=== PATIENT | female | born 1990 | race Caucasian/White ===

== ENCOUNTER 2017-01-25 23:55 | Emergency (ER) | payer OTHER ==
[~2017-01-25] VITALS: Ht 154.9 cm; Wt 58.1 kg
[~2017-01-25 23:55] MED LIST: ALBU0.0939 IH; PRED10TA5 PO; PREN-385 PO; PRON INH
[2017-01-26 00:03] VITALS: BP 117/72
[2017-01-26] MEDS: BACITRACIN OINT 500 UNITS/GM PKT TP ONE (00:35)
[2017-01-26 01:03] VITALS: BP 122/76
== END 2017-01-26 01:03 | disposition home or self-care (01) ==
LOC: MED 23:55
DX: S01.01XA Laceration without foreign body of scalp, initial encounter (principal); J45.909 Unspecified asthma, uncomplicated; Y04.2XXA Assault by strike against or bumped into by another person, initial encounter; Y93.84 Activity, sleeping; Y92.092 Bedroom in other non-institutional residence as the place of occurrence of the external cause; Y99.8 Other external cause status
CPT/HCPCS: 12001; 90471; 90715; 99283

== ENCOUNTER 2020-03-22 22:01 | Emergency (ER) | payer OTHER ==
[~2020-03-22] VITALS: Ht 154.9 cm; Wt 64.9 kg
[2020-03-22 22:05] VITALS: BP 116/74
[2020-03-22] MEDS ORDERED: methylPREDNISolone SS 125 MG in WATER STERILE 2 ML IM ONE (22:35)
[2020-03-22] MEDS ORDERED: methylPREDNISolone SS 125 MG/2 ML VIAL ONE (22:41)
[2020-03-22] MEDS ORDERED: WATER STERILE 10 ML MC ONE (22:41)
[2020-03-22 22:58] VITALS: BP 120/64
== END 2020-03-22 22:58 | disposition home or self-care (01) ==
LOC: MED 22:01
DX: L50.0 Allergic urticaria (principal); J45.909 Unspecified asthma, uncomplicated; Z79.899 Other long term (current) drug therapy
CPT/HCPCS: 96372; 99283; J2930; Q0163

== ENCOUNTER 2022-01-05 19:22 | Emergency (ER) | payer OTHER ==
[~2022-01-05] VITALS: Ht 154.9 cm; Wt 71.7 kg
[2022-01-05 19:43] VITALS: BP 124/77
--- NOTE | 2022-01-05 19:52 | NUR ---
SWABS COLLECTED AND GIVEN TO PRITI FROM LAB. PT TO GIOVANNI.
--- NOTE | 2022-01-05 20:59 | NUR ---
PT TAKEN TO BED 7.
--- NOTE | 2022-01-05 21:16 | NUR ---
DR. ZAMORA AT BEDSIDE FOR EVALUATION
[2022-01-05] MEDS ORDERED: ONDANSETRON 4 MG ODT PO ONE (21:25)
[2022-01-05] MEDS ORDERED: DICYCLOMINE 20 MG/2 ML VIAL IM ONE (21:25)
[2022-01-05 21:37] LABS: BASOPHILS % (AUTO) 0.6 % (0.0-2.0); EOSINOPHILS # (AUTO) 0.3 K/uL (0-0.4); EOSINOPHILS % (AUTO) 3.7 % (0.0-4.0); HEMATOCRIT 38.9 % (36-48); HEMOGLOBIN 12.8 g/dL (12.0-16.0); LYMPHOCYTES # (AUTO) 2.3 K/uL (2.5-16.5); LYMPHOCYTES % (AUTO) 31.7 % (20.5-51.1); MEAN CORPUSCULAR HEMOGLOBIN 30 pg (27-31); MEAN CORPUSCULAR HGB CONC 33 g/dL (33-37); MEAN CORPUSCULAR VOLUME 91.1 fL (80-94); MONOCYTES # (AUTO) 0.5 K/uL (0.8-1.0); MONOCYTES % (AUTO) 6.7 % (1.7-9.3); NEUTROPHILS # (AUTO) 4.2 K/uL (1.8-7.7); NEUTROPHILS % (AUTO) 57.3 % (42.2-75.2); PLATELET COUNT (AUTO) 294 K/uL (140-450); RED BLOOD CELL COUNT(AUTO) 4.27 MIL/uL (4.20-5.40); RED CELL DISTRIBUTION WIDTH 14.1 % (11.6-13.7); WHITE BLOOD COUNT (AUTO) 7.4 K/uL (4.8-10.8)
[2022-01-05 21:53] LABS: ANION GAP 10.6 (8-16); CARBON DIOXIDE 26.2 mmol/L (21-32); CREATININE 0.7 mg/dL (0.6-1.3); POTASSIUM 3.8 mmol/L (3.5-5.1); TOTAL BILIRUBIN 0.3 mg/dL (0.0-1.0)
--- NOTE | 2022-01-05 22:03 | NUR ---
PT STATES DIARHEA X 3 DAYS , DENIES RECENT TRAVEL . DENIES N/V/D; SKIN IS PINK/WARM/DRY; AAOX4 WITH EVEN AND STEADY GAIT; LUNGS CLEAR BL; HR EVEN AND REGULAR; PT DENIES ANY FEVER, CP, SOB, OR COUGH AT THIS TIME; PATIENT STATES PAIN OF 0/10 AT THIS TIME; VSS; PATIENT POSITIONED FOR COMFORT; HOB ELEVATED; BEDRAILS UP X2; BED DOWN. ER MD MADE AWARE OF PT STATUS.
--- NOTE | 2022-01-05 22:03 | NUR ---
PROVIDED PT CUP FOR URINE
--- NOTE | 2022-01-05 22:26 | NUR ---
PT STATES DIARRHEA X 3 DAYS. PT DENIES TRAVEL. NO BLOOD IN STOOL. STOOL IS WATERY AND LOOSE. PT STATES NAUSEA AND TIREDNESS . DENIES CHEST PAIN/FEVER/COUGH/V/D; SKIN IS PINK/WARM/DRY; AAOX4 WITH EVEN AND STEADY GAIT; LUNGS CLEAR BL; HR EVEN AND REGULAR; PMH:NONE NKA LMAP: 11/06/21 WITH SPOTTING IN BETWEEN
[2022-01-05 22:29] LABS: APPEARANCE,URINE CLEAR (CLEAR); BILIRUBIN,URINE NEGATIVE (NEGATIVE); BLOOD, URINE TRACE-I (NEGATIVE); COLOR,URINE YELLOW (YELLOW); LEUKOCYTE ESTERASE ,URINE NEGATIVE (NEGATIVE); NITRITE, URINE NEGATIVE (NEGATIVE); PH,URINE 6.5 (5.0-9.0); UGLUCOSE NEGATIVE (NEGATIVE)
[2022-01-05] MEDS ORDERED: ONDA-188 PO (22:36)
[2022-01-05] MEDS ORDERED: BEN10 PO (22:36)
[2022-01-05 22:41] LABS: RBC,URINE 0-5 /HPF (0-5); WBC,URINE 0-5 /HPF (0-5)
[2022-01-05 22:50] VITALS: BP 111/71
--- NOTE | 2022-01-05 22:50 | NUR ---
Patient discharged with v/s stable. Written and verbal after care instructions given and explained. Patient alert, oriented and verbalized understanding of instructions. Ambulatory with steady gait. All questions addressed prior to discharge. ID band removed. Patient advised to follow up with PMD. Rx of todd brandt, and Bentyl given. Opportunity to ask questions provided and answered.
--- NOTE | 2022-01-05 22:58 | NUR ---
The patient's care was reviewed and supervised by Mary Love RN.
== END 2022-01-05 22:50 | disposition home or self-care (01) ==
LOC: MED 19:22
DX: R11.2 Nausea with vomiting, unspecified (principal); Z20.822 Contact with and (suspected) exposure to COVID-19; R19.7 Diarrhea, unspecified; R53.83 Other fatigue; J45.909 Unspecified asthma, uncomplicated; Z79.899 Other long term (current) drug therapy
CPT/HCPCS: 36415; 80053; 81001; 81025; 85025; 87426; 87804; 96372; 99285; J0500; Q0162

== ENCOUNTER 2022-04-29 21:49 | Emergency (ER) | payer OTHER ==
[~2022-04-29] VITALS: Ht 154.9 cm; Wt 68.0 kg
[~2022-04-29 21:49] MED LIST changes: +BEN10 PO; +ONDA-188 PO
--- NOTE | 2022-04-29 22:06 | NUR ---
PT TAKEN TO BED 1
[2022-04-29 22:10] VITALS: BP 119/54
--- NOTE | 2022-04-29 22:16 | NUR ---
Dr. Leiva examining patient.
[2022-04-29] MEDS ORDERED: methylPREDNISolone SS 125 MG in WATER STERILE 2 ML IV ONE (22:25)
[2022-04-29] MEDS ORDERED: NACL 0.9% 1,000 ML IV ONE (22:25)
[2022-04-29] MEDS ORDERED: LEVALBUTEROL 0.63 MG/3 ML NEBU INH ONE (22:25)
[2022-04-30] MEDS ORDERED: LEVALBUTEROL 0.63 MG/3 ML NEBU INH ONE (00:45)
--- NOTE | 2022-04-30 00:52 | NUR ---
RT at bedside for breathing treatment.
[2022-04-30] MEDS ORDERED: ACETAMINOPHEN EXTRA STRENGTH 500 MG TAB PO ONE (01:30)
[2022-04-30] MEDS ORDERED: AZIT250T4 PO (02:44)
[2022-04-30] MEDS ORDERED: PRED20TA5 PO (02:44)
[2022-04-30] MEDS ORDERED: ACET-10509 PO (02:44)
[2022-04-30] MEDS ORDERED: ALBU0.0912 IH (02:44)
[2022-04-30 03:04] VITALS: BP 101/63
[2022-04-30] MEDS ORDERED: methylPREDNISolone SS 125 MG/2 ML VIAL IVP SCH (06:55)
--- NOTE | 2022-04-30 16:47 | NUR ---
LATE ENTRY IV NS FLUIDS ENDED ON 04/30/22 AT 0304.
== END 2022-04-30 03:03 | disposition home or self-care (01) ==
LOC: MED 21:49
DX: J45.901 Unspecified asthma with (acute) exacerbation (principal); Z20.822 Contact with and (suspected) exposure to COVID-19
CPT/HCPCS: 71045; 87426; 87804; 94640; 96360; 96361; 99285; J7614; Q0092; J7030

== ENCOUNTER 2023-06-15 17:04 | Emergency (ER) | payer SELFPAY ==
[~2023-06-15] VITALS: Ht 162.6 cm; Wt 72.6 kg
[~2023-06-15 17:04] MED LIST changes: +ACET-10509 PO; +ALBU0.0912 IH; +AZIT250T4 PO; +PRED20TA5 PO
[2023-06-15 18:37] VITALS: BP 119/78; PULSE 86; RESP 20; TEMP 98.6; O2SAT 97
[2023-06-15] MEDS ORDERED: ALBUTEROL SULFATE/IPRATROPIU 3 ML SOL IH STA (18:48)
[2023-06-15] MEDS ORDERED: predniSONE 20 MG TAB PO ONE (18:50)
[2023-06-15 19:37] VITALS: PULSE 95; PULSE 96; RESP 22; O2SAT 98
[2023-06-15] MEDS ORDERED: PRON INH (19:55)
[2023-06-15] MEDS ORDERED: PRED20TA5 PO (19:55)
[2023-06-15] MEDS ORDERED: ALBU0.0912 IH (19:55)
[2023-06-15] MEDS ORDERED: PROM118S5 PO (19:55)
[2023-06-15 21:00] VITALS: BP 120/79; PULSE 80; RESP 18; TEMP 98; O2SAT 98
== END 2023-06-15 21:00 | disposition home or self-care (01) ==
LOC: MED 17:04
DX: J45.909 Unspecified asthma, uncomplicated (principal); Z79.899 Other long term (current) drug therapy; Z79.2 Long term (current) use of antibiotics
CPT/HCPCS: 94640; 99283; J7512

== ENCOUNTER 2023-09-06 23:02 | Emergency (ER) | payer OTHER ==
[~2023-09-06] VITALS: Ht 154.9 cm; Wt 59.0 kg
[~2023-09-06 23:02] MED LIST changes: +PROM118S5 PO
[2023-09-06 23:09] VITALS: BP 126/78; PULSE 95; RESP 18; TEMP 97.1; O2SAT 98
[2023-09-06 23:38] LABS: APPEARANCE,URINE CLEAR (CLEAR); BILIRUBIN,URINE NEGATIVE (NEGATIVE); BLOOD, URINE 3+ (NEGATIVE); COLOR,URINE YELLOW (YELLOW); LEUKOCYTE ESTERASE ,URINE 2+ (NEGATIVE); NITRITE, URINE NEGATIVE (NEGATIVE); PROTEIN,URINE 2+ (NEGATIVE); UGLUCOSE NEGATIVE (NEGATIVE); UROBILINOGEN,URINE 0.2 EU/dL (0.2 - 1)
[2023-09-06 23:58] LABS: BACTERIA,URINE 10-30 (MOD) /HPF (None Seen); MUCUS,URINE 1+ /LPF (None Seen); SQUAMOUS EPITHELIAL CELL,UR 0-3 (FEW) /LPF (0-3 (FEW)); WBC,URINE TOO MANY TO COUNT /HPF (0-5)
[2023-09-07] MEDS ORDERED: CEPH-588 PO (00:17)
[2023-09-07] MEDS ORDERED: PYR100 PO (00:17)
[2023-09-07] MEDS: cephALEXin 500 MG CAP PO ONE (00:23)
== END 2023-09-07 00:19 | disposition home or self-care (01) ==
LOC: MED 23:02
DX: N39.0 Urinary tract infection, site not specified (principal); J45.909 Unspecified asthma, uncomplicated; Z79.899 Other long term (current) drug therapy
CPT/HCPCS: 81001; 81025; 87086; 99283